=== PATIENT | male | born 1955 | race Caucasian/White ===

== ENCOUNTER 2018-02-04 09:29 | Emergency (ER) | payer OTHER ==
[2018-02-04 09:44] VITALS: BP 157/98
--- NOTE | 2018-02-04 10:05 | UC ---
Dizzy HPI HPI Summary: The patient is a 62-year-old male that had the acute onset of vertigo 5 days ago. Vertigo is worsened with any change in head position or body position. He had severe nausea on the day of onset with a few episodes of vomiting. He has had no URI symptoms. He denies any headache. He denies any URI symptoms. Denies any ringing or roaring in his ears. He still has vertigo however the past few days he has not had any nausea or vomiting associated with it. He states that he had similar but more severe symptoms about 20 years ago. He states his balance has never been the same since then. He denies any chest pain or shortness of breath. He does have a history of diabetes. - History Of Current Complaint Chief Complaint: UCDizziness Stated Complaint: DIZZY Hx Obtained From: Patient Onset/Duration: Sudden Onset, Lasting Days Timing: Constant Severity Initially: Severe Severity Currently: Moderate Pain Intensity: 0 Pain Scale Used: 0-10 Numeric Character: Room Spinning Aggravating Factor(s): Position Change, Change In Head Position Alleviating Factor(s): Rest Associated Signs And Symptoms: Positive: Nausea, Vomiting, Unsteady Gait - using a cane nw - Allergies/Home Medications Allergies/Adverse Reactions: Allergies Allergy/AdvReac Type Severity Reaction Status Date / Time No Known Allergies Allergy Verified 02/04/18 09:44 Home Medications: Home Medications Empaglifozin (NF) [Jardiance] 1 tab PO DAILY 02/04/18 [History Confirmed ] PMH/Surg Hx/FS Hx/Imm Hx Previously Healthy: Yes Endocrine History: Diabetes - Surgical History Surgical History: Yes Surgery Procedure, Year, and Place: hernia repair 1985 - Family History Known Family History: Positive: Hypertension, Diabetes Family History: NON CONTRIBUTORY - Social History Alcohol Use: Rare Alcohol Amount: FEW DRINKS/YEAR Substance Use Type: None Smoking Status (MU): Never Smoked Tobacco Have You Smoked in the Last Year: No - Immunization History Most Recent Tetanus Shot: unk Review of Systems All Other Systems Reviewed And Are Negative: Yes Constitutional: Positive: Other - vertigo Skin: Positive: Negative Eyes: Positive: Negative ENT: Positive: Negative Respiratory: Positive: Negative Cardiovascular: Positive: Negative Gastrointestinal: Positive: Negative Genitourinary: Positive: Negative Motor: Positive: Negative Neurovascular: Positive: Negative Musculoskeletal: Positive: Negative Neurological: Positive: Negative Psychological: Positive: Negative Physical Exam Triage Information Reviewed: Yes Appearance: Well-Appearing, No Pain Distress, Well-Nourished Vital Signs: Initial Vital Signs Temp 97.3 F 02/04/18 09:39 Pulse 78 02/04/18 09:39 Resp 18 02/04/18 09:39 BP 157/98 02/04/18 09:39 Pulse Ox 98 02/04/18 09:39 Vital Signs Reviewed: Yes Eyes: Positive: Conjunctiva Clear, Other: - EOMI/PERRRL/fundi -benign, no nystagmus ENT: Positive: Hearing grossly normal, Pharyngeal erythema, TMs normal, Uvula midline. Negative: Nasal congestion, Nasal drainage, Tonsillar swelling, Tonsillar exudate, Trismus, Muffled voice, Hoarse voice, Dental tenderness, Sinus tenderness Neck: Positive: Supple, Nontender, No Lymphadenopathy, Other: - no bruits Respiratory Exam: Other Respiratory: Positive: Lungs clear, Normal breath sounds, No respiratory distress Cardiovascular: Positive: RRR, No Murmur Musculoskeletal: Positive: ROM Intact, No Edema Neurological: Positive: Alert Psychological Exam: Normal Skin Exam: Normal Diagnostics - Radiology No standard instances Radiology Interpretation Completed By: Radiologist Summary of Radiographic Findings: no mass/no cva/no sinusitis - EKG Cardiac Rhythm: Sinus: Normal Ectopy: None ST Segment: Normal Dizzy Course/Dx - Course Course Of Treatment: pt not driving and will not drive until better - Differential Dx/Diagnosis Provider Diagnosis: Vertigo Discharge - Sign-Out/Discharge Documenting (check all that apply): Patient Departure All imaging exams completed and their final reports reviewed: Yes - Discharge Plan Condition: Stable Disposition: HOME Patient Education Materials: Vertigo (ED) Forms: *Work Release Referrals: Hang Smith MD [Primary Care Provider] - 3 Days Additional Instructions: no driving until better use cane until better change position slowly - Billing Disposition and Condition Condition: STABLE Disposition: Home
[2018-02-04] MEDS ORDERED: Meclizine TAB* 12.5 MG PO ONE (10:07)
== END 2018-02-04 11:03 | disposition home or self-care (01) ==
LOC: UCEAST 09:29
DX: R42 Dizziness and giddiness (principal); E11.9 Type 2 diabetes mellitus without complications
CPT/HCPCS: 70450; 93005; 99212; A9270-GY; G0463

== ENCOUNTER 2018-06-26 06:21 | Day surgery (SDC) | payer OTHER ==
[~2018-06-26 06:21] MED LIST: Acetaminophen TAB* 325 MG PO PRN; Buffered Lidocaine 1% SYRIN* 1 ML/SYRINGE INTRADERM ONE; Midazolam* 1 MG/ML 2 ML VIAL (2 MG) ONE
[2018-06-26] MEDS ORDERED: Midazolam* 1 MG/ML 2 ML VIAL (2 MG) ONE (07:34)
[2018-06-26 08:03] VITALS: BP 124/62
--- NOTE | 2018-06-26 08:41 | OP ---
OPERATIVE NOTE: DATE OF OPERATION: 06/26/18 DATE OF : 57 SURGEON: Albert Castellanos MD PREOPERATIVE DIAGNOSIS: Cataract left eye. POSTOPERATIVE DIAGNOSIS: Cataract left eye. OPERATIVE PROCEDURE: Extracapsular cataract extraction with intraocular lens implant left eye. PROCEDURE: The patient was brought to the operating room after being given 1/2% Alcaine with epineph rine drops in the preoperative area. The eye was prepped and draped in the usual sterile fashion. S terile drape and eyelid speculum were placed. Again, topical 1/2% Alcaine with epinephrine was given . A paracentesis incision was made at the 3 o'clock position with the No.75 blade. Clear cornea inc ision 2.2 x 2.2-mm was created at the 6 o'clock position starting at the anterior limbus using the 2. 2-mm keratome. The anterior chamber was irrigated with 0.4 mL of 1% non-preservative intracameral li docaine and filled with DisCoVisc. A capsulorrhexis was completed using the cystotome and the Utrata forceps. Hydrodissection was performed with balanced salt solution. The lens nucleus was removed wi th the Phacoemulsification handpiece without incident. Cortex was removed with the irrigation-aspira tion handpiece. The capsular bag was re-inflated using DisCoVisc and an SN60WF 19.5 implant was inse rted with the shooter. The irrigation-aspiration handpiece was used to remove all residual DisCoVisc . The eye was refilled with balanced salt solution and the wound checked and found to be watertight. Topical Maxitrol drops were given. [id number]/[facility] #: [id number]
[2018-06-26] MEDS ORDERED: acetaZOLAMIDE TAB* 250 MG ONE (13:55)
[2018-06-26] MEDS ORDERED: Lidocaine 2% EPI 1:200000 MPF*10-20 ML VIAL ONE (13:55)
[2018-06-26] MEDS ORDERED: Ketorolac 0.5% OPHTH (NF) 0.5 % 5 ML BTL ONE (13:55)
[2018-06-26] MEDS ORDERED: Povidone Iodine 5% OPTH* 30 ML BTL ONE (13:55)
[2018-06-26] MEDS ORDERED: Cyclopentolate 1% OPTH.SOL* 2 ML BTL ONE (13:55)
[2018-06-26] MEDS ORDERED: Phenylephrine OPHTH SOL 2.5%* 2 ML ONE (13:55)
[2018-06-26] MEDS ORDERED: Lidocaine 1%* 5 ML VIAL ONE (13:55)
[2018-06-26] MEDS ORDERED: Proparacaine 0.5% OPHTH.SOL* 15 ML BTL ONE (13:55)
[2018-06-26] MEDS ORDERED: Neomycin/Polymy/Dex OPTH.SUSP* MAXITROL 0.1% 5 ML ONE (13:55)
== END 2018-06-26 08:13 | disposition home or self-care (01) ==
LOC: OREAST 06:21
PROVIDERS: ATTEND Specialist
DX: H25.812 Combined forms of age-related cataract, left eye (principal); Z01.810 Encounter for preprocedural cardiovascular examination; E11.3293 Type 2 diabetes mellitus with mild nonproliferative diabetic retinopathy without macular edema, bilateral; H50.53 Vertical heterophoria; I10 Essential (primary) hypertension; E11.9 Type 2 diabetes mellitus without complications; E78.00 Pure hypercholesterolemia, unspecified; J06.9 Acute upper respiratory infection, unspecified; R30.0 Dysuria; Z96.1 Presence of intraocular lens
CPT/HCPCS: A9270-GY; J2250; V2632

== ENCOUNTER 2018-07-19 15:24 | Emergency (ER) | payer OTHER ==
--- OUTSIDE RECORDS SUMMARY | 2018-07-19 15:29 | XMS REPORT | Continuity of Care Document ---
:1955 External Reference #:[id number] Author Name Sanjuanita Mckeon O.D. Address [address] [place] [address] Care Team Providers Name Role Phone Hang Smith M.D. Primary Care Physician Unavailable Payers Date Identification Numbers Payment Provider Subscriber Policy Number: [id number] [employer] Ppo/Pos/Epo/Nap [employer] Number: [id number] [address] PayID: [id number] [place] [address] Advance Directives Description No Information Available Problems Active Problems Provider Date Essential hypertension Onset: Type 2 diabetes mellitus Albert Castellanos M.D. Onset: 10/19/2014 Nuclear senile cataract Albert Castellanos M.D. Onset: 10/19/2014 Disorder of eye with type 2 diabetes mellitus Albert Castellanos M.D. Onset: Nonproliferative diabetic retinopathy Albert Castellanos M.D. Onset: 10/19/2014 Combined form of senile cataract Albert Castellanos M.D. Onset: 01/14/2015 Type 2 diabetes mellitus with mild Albert Castellanos M.D. Onset: 01/14/2015 nonproliferative diabetic retinopathy without macular edema Presence of intraocular lens Albert Castellanos M.D. Onset: 01/21/2015 Tear film insufficiency Sanjuanita Mckeon O.D. Onset: 03/31/2015 Type 2 diabetes mellitus with mild Albert Castellanos M.D. Onset: 09/04/2016 nonproliferative diabetic retinopathy without macular edema, bilateral Vertical heterophoria Sanjuanita Mckeon O.D. Onset: 02/12/2018 Retinal lattice degeneration Sanjuanita Mckeon O.D. 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 Solution Fish Oil 1 by mouth Albert Castellanos, 10/18/2014 1000mg Capsules every day M.D. Phenylephrine Unknown Decongestant Naproxen Unknown 220mg Tablets Ferrous Sulfate Unknown 325(65Fe) mg Tablets Potassium Unknown 75mg Tablets Jardiance Unknown 25mg Tablets Januvia Unknown 100mg Tablets Multivitamins Unknown Capsules Chromium Unknown 1000mcg Tablets Magnesium Unknown 500mg Capsules Metformin HCL Sammi Smithter 850mg Tablets M.D. Losartan Potassium Sarah Hang 50mg M.D. Tablets Glyburide Sarah Hang 5mg Tablets M.D. Atorvastatin Calcium Sarah Hang 20mg M.D. Tablets History Medications Ciprofloxacin HCL instill one drop 10ml Albert Castellanos, 06/11/2018 - 0.3% in the left eye M.D. 07/11/2018 Solution three times a day, start the day before surgery Ketorolac Tromethamine use one drop in 10ml Albert Castellanos, 06/11/2018 - 0.5% the left eye three M.D. 07/11/2018 Solution times a day, start the day before surgery Prednisolone Acetate 1 drops left eye 10ml Albert Barrerachristiano, 06/11/2018 - 1% three times a day. M.D. 07/11/2018 Suspension taper as directed Artificial Tears as needed Sanjuanita Mckeon, 02/03/2015 - 0.1-0.3% O.D. 03/30/2015 Solution Ciprofloxacin HCL instill one drop 5ml Albert Barrerachristiano, 01/15/2015 - 0.3% in the right eye M.D. 02/03/2015 Solution three times a day, start the day before surgery Ketorolac Tromethamine 1 drop right eye 10ml Albert Barrerachristiano, 01/15/2015 - 0.5% daily M.D. 03/30/2015 Solution Prednisolone Acetate 1 drop right eye 15ml Albert Barrerachristiano, 01/15/2015 - 1% daily M.D. 03/30/2015 Suspension Hang Mcconnell - 5mg Tablets M.D. 08/26/2015 Immunizations Description No Information Available Vital Signs Description No Information Available Results Test Date Facility Test Result H/L Range Note Laboratory test 06/26/2018 [facility] Point of Care 195 mg/dL High 70-[address] [place] [address] (607)- - Laboratory test 01/20/2015 [facility] Point of Care 222 mg/dL High 74-106 [address] [place] [address] (607)- - 1 Tobacco Buyer: [id number] Tobacco Buyer: [id number] TRAY ZIMMERMAN Procedures Date Code Description Status 06/26/2018 57013 Extracapsular Cataract Extraction W/Intraocular Lens Completed 06/11/2018 73689 Ophthalmic Biometry Completed 06/11/2018 52936 Scanning Computerized Opthalmic Diagnostic Posterior Seg Completed Retina 06/11/2018 87236 Est Patient Intermediate Exam Completed 03/12/2018 15815 Est Patient Comprehensive Exam Completed 02/12/2018 21578 Est Patient Intermediate Exam Completed 09/04/2017 13193 Scanning Computerized Opthalmic Diagnostic Posterior Seg Completed Retina 09/04/2017 43120 Determination Of Refractive State Completed 09/04/2017 20194 Est Patient Comprehensive Exam Completed 09/04/2016 36229 Scanning Computerized Opthalmic Diagnostic Posterior Seg Completed Retina 09/04/2016 61362 Est Patient Comprehensive Exam Completed 08/27/2015 97867 Est Patient Comprehensive Exam Completed 01/20/2015 50479 Extracapsular Cataract Extraction W/Intraocular Lens Completed 01/14/2015 75603 Computerized Corneal Topography Completed 01/14/2015 49244 Scanning Computerized Opthalmic Diagnostic Posterior Seg Completed Retina 01/14/2015 76304 Ophthalmic Biometry Completed 10/19/2014 21374 Est Patient Intermediate Exam Completed 03/27/2014 54334 Scanning Computerized Opthalmic Diagnostic Posterior Seg Completed Retina 03/27/2014 57158 Est Patient Comprehensive Exam Completed 03/25/2013 60898 Determination Of Refractive State Completed 03/25/2013 17553 Est Patient Comprehensive Exam Completed 11/02/2011 37058 Determination Of Refractive State Completed 11/02/2011 40864 Est Patient Comprehensive Exam Completed 12/15/2010 16227 Est Patient Comprehensive Exam Completed 12/09/2009 75131 Est Patient Comprehensive Exam Completed 12/08/2008 54742 Determination Of Refractive State Completed 12/08/2008 50917 New Patient Comprehensive Exam Completed 03/22/2005 07441 Visual Field Exam Extended Completed 01/24/2005 40746 Determination Of Refractive State Completed 01/24/2005 47314 Est Patient Comprehensive Exam Completed Encounters Type Date Location Provider Dx Diagnosis Office Visit 03/31/2015 Sanjuanita Skinner, H04.123 Dry eye syndrome 2:15p alin JAMES O.D. of bilateral lacrimal glands Office Visit 01/14/2015 Albert Skinner, H25.811 Combined forms of 8:15a alin JAMES M.D. age-related cataract, right eye H25.12 Age-related nuclear cataract, left eye E11.329 Type 2 diab w mild nonprlf diabetic rtnop w/o macular edema Office Visit 03/24/2009 8:15a Albert Granados, 379.24 Other Vitreous MD Emanuel, alin Sharma Opacities / Floater Office Visit 05/04/2005 8:15a Albert Granados, 250.00 Diabetes/ Type 2 MD Emanuel, alin Sharma W/O Complication Plan of Treatment Future Appointment(s):12/27/2018 8:00 am - Albert Castellanos M.D. at [facility], pc07/12/2018 - Sanjuanita Mckeon O.D.Z96.1 Presence of intraocular lensComments:The artificial lens implant in your left eye appears to be stable at this time.H35.413 Lattice degeneration of retina, bilateralComments:if you notice any new flashes or floaters, please call the office to be seenFollow up: as scheduled
--- OUTSIDE RECORDS SUMMARY | 2018-07-19 15:30 | XMS REPORT | Continuity of Care Document ---
:1955 External Reference #:[id number] Author Name Albert Castellanos M.D. Address [address] [place] [address] Care Team Providers Name Role Phone Hang Smith M.D. Primary Care Physician Unavailable Payers Date Identification Numbers Payment Provider Subscriber Policy Number: [id number] [employer] Ppo/Pos/Epo/Nap [employer] Number: [id number] [address] PayID: [id number] [place] [address] Advance Directives Description No Information Available Problems [...] Vertical heterophoria Sanjuanita Mckeon O.D. 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 Solution Ciprofloxacin HCL instill one drop 10ml Albert Castellanos, 06/11/2018 0.3% in the left eye M.D. Solution three times a day, start the day before surgery Ketorolac Tromethamine use one drop in 10ml Albert Castellanos, 06/11/2018 0.5% the left eye M.D. Solution three times a day, start the day before surgery Prednisolone Acetate 1 drops left eye 10ml Albert Castellanos, 06/11/2018 1% three times a M.D. Suspension day. taper as directed Fish Oil 1 by mouth every Albert Castellanos, 10/18/2014 1000mg Capsules day M.D. Phenylephrine Unknown Decongestant Naproxen Unknown 220mg Tablets Ferrous Sulfate Unknown 325(65Fe) mg Tablets Potassium Unknown 75mg Tablets Jardiance Unknown 25mg Tablets Januvia Unknown 100mg Tablets Multivitamins Unknown Capsules Chromium Unknown 1000mcg Tablets Magnesium Unknown 500mg Capsules Metformin HCL Hang Smith 850mg Tablets M.D. Losartan Potassium Hang Smith 50mg M.D. Tablets Glyburide Hang Smith 5mg Tablets M.D. Atorvastatin Calcium Sammi Smith 20mg M.D. Tablets History Medications Artificial Tears as needed Sanjuanita Mckeon, 02/03/2015 - 0.1-0.3% O.D. 03/30/2015 Solution Ciprofloxacin HCL instill one drop 5ml Albert Barrerachristiano, 01/15/2015 - 0.3% in the right eye M.D. 02/03/2015 Solution three times a day, start the day before surgery Ketorolac Tromethamine 1 drop right eye 10ml Albert Webbeduardo, 01/15/2015 - 0.5% daily M.D. 03/30/2015 Solution Prednisolone Acetate 1 drop right eye 15ml Albert Barrerachristiano, 01/15/2015 - 1% daily M.D. 03/30/2015 Suspension Hang Mcconnell - 5mg Tablets M.D. 08/26/2015 Immunizations Description No Information Available Vital Signs Description No Information Available Results Test Date Facility Test Result H/L Range Note Laboratory test 06/26/2018 [facility] Point of Care 195 mg/dL High 70-100 [address] [place] [address] (607)- - Laboratory test 01/20/2015 [facility] Point of Care 222 mg/dL High 74-106 [address] [place] [address] (607)- - 1 Patrol Guard: [id number] Patrol Guard: [id number] TRAY ZIMMERMAN Procedures Date Code Description Status 06/26/2018 67409 Extracapsular Cataract Extraction W/Intraocular Lens Completed 06/11/2018 59926 Ophthalmic Biometry Completed 06/11/2018 32279 Scanning Computerized Opthalmic Diagnostic Posterior Seg Completed Retina 06/11/2018 60002 Est Patient Intermediate Exam Completed 03/12/2018 54451 Est Patient Comprehensive Exam Completed 02/12/2018 13064 Est Patient Intermediate Exam Completed 09/04/2017 35173 Scanning Computerized Opthalmic Diagnostic Posterior Seg Completed Retina 09/04/2017 78476 Determination Of Refractive State Completed 09/04/2017 38609 Est Patient Comprehensive Exam Completed 09/04/2016 84727 Scanning Computerized Opthalmic Diagnostic Posterior Seg Completed Retina 09/04/2016 98348 Est Patient Comprehensive Exam Completed 08/27/2015 43016 Est Patient Comprehensive Exam Completed 01/20/2015 76921 Extracapsular Cataract Extraction W/Intraocular Lens Completed 01/14/2015 12032 Computerized Corneal Topography Completed 01/14/2015 93913 Scanning Computerized Opthalmic Diagnostic Posterior Seg Completed Retina 01/14/2015 74481 Ophthalmic Biometry Completed 10/19/2014 75651 Est Patient Intermediate Exam Completed 03/27/2014 13004 Scanning Computerized Opthalmic Diagnostic Posterior Seg Completed Retina 03/27/2014 47972 Est Patient Comprehensive Exam Completed 03/25/2013 86098 Determination Of Refractive State Completed 03/25/2013 79614 Est Patient Comprehensive Exam Completed 11/02/2011 65065 Determination Of Refractive State Completed 11/02/2011 92083 Est Patient Comprehensive Exam Completed 12/15/2010 37487 Est Patient Comprehensive Exam Completed 12/09/2009 70025 Est Patient Comprehensive Exam Completed 12/08/2008 70764 Determination Of Refractive State Completed 12/08/2008 81550 New Patient Comprehensive Exam Completed 03/22/2005 81396 Visual Field Exam Extended Completed 01/24/2005 27962 Determination Of Refractive State Completed 01/24/2005 44870 Est Patient Comprehensive Exam Completed Encounters Type [...] Albert Granados, 250.00 Diabetes/ Type 2 MD [facility] M.D. W/O Complication Plan of Treatment Future Appointment(s):07/12/2018 7:45 am - Sanjuanita Mckeon O.D. at Albert Castellanos MD, 06/27/2018 - Albert Castellanos M.D.Z96.1 Presence of intraocular lensComments:Smoking can increase the risk of developing or worsening any eye related disease, as well as affect your overall health. If you are a smoker, we strongly recommend that you quit.If you are not a smoker, we strongly recommend that you do not start. The artifical lens implant in your left eye appears to be stable. Since this is the first day after surgery, your left eye is still dilated and the vision will still be slightly blurry. The dilation will go down over the next day or two. Continue taking your eye drops as directed on the surgical calendar. If you have any questions, please call our office.E11.6569 Type 2 diabetes mellitus with mild nonproliferative diabetic retinopathy without macular edema, bilateralFollow up:6 Month Follow Up OCT MAC You can expect to have your eyes dilated at your next visit. If Dr. Rosenthalders any additional testing, it may require extra time. We recommend that you bring sunglasses, asdilation drops often make you light sensitive until they wear off. We always recommend you bring someone to drive you home if you are uncomfortable driving with your eyes dilated. If you have any questions before your next visit, feel free to call our office at .
--- NOTE | 2018-07-19 15:33 | UC ---
Dental HPI - HPI Summary HPI Summary: 63 yo male presents with dental pain. He tells me that he has extensive dental work on the upper right part of his mouth/teeth. This morning he noticed some pain and swelling to the gums in this area. He took a needle and poked the swollen gum line and drained a lot of blood and yellow pus. He called his dentist, but they cannot see him for 3 days and recommended he be seen at to be placed on anbx. Pt is tolerating po well. Denies fevers. - History of Current Complaint Stated Complaint: DENTAL Time Seen by Provider: 07/19/18 15:32 Hx Obtained From: Patient Onset/Duration: Sudden Onset Severity: Mild Pain Intensity: 3 Pain Scale Used: 0-10 Numeric - Allergies/Home Medications Allergies/Adverse Reactions: Allergies Allergy/AdvReac Type Severity Reaction Status Date / Time No Known Allergies Allergy Verified 06/26/18 06:37 PMH/Surg Hx/FS Hx/Imm Hx - Additional Past Medical History Additional PMH: Vertigo Endocrine History: Diabetes, Dyslipidemia Cardiovascular History: Hypertension - Surgical History Surgical History: Yes Surgery Procedure, Year, and Place: hernia repair 1985 - Family History Known Family History: Positive: Hypertension, Diabetes - Social History Lives: With Family Alcohol Use: Rare Alcohol Amount: FEW DRINKS/YEAR Substance Use Type: None Smoking Status (MU): Never Smoked Tobacco Have You Smoked in the Last Year: No - Immunization History Most Recent Tetanus Shot: unk Review of Systems All Other Systems Reviewed And Are Negative: Yes Constitutional: Positive: Negative Skin: Positive: Negative Eyes: Positive: Negative ENT: Positive: Dental Pain Respiratory: Positive: Negative Cardiovascular: Positive: Negative Gastrointestinal: Positive: Negative Neurovascular: Positive: Negative Neurological: Positive: Negative Psychological: Positive: Negative Physical Exam - Summary Physical Exam Summary: GENERAL: NAD. WDWN. No pain distress. SKIN: No rashes, sores, lesions, or open wounds. HEENT: Head: AT/NC Nose: Nasal mucosa pink and moist. NTTP maxillary and frontal sinus. Throat: Posterior oropharynx without exudates, erythema, or tonsillar enlargement. Uvula midline. NECK: Supple. Nontender. No lymphadenopathy. CHEST: No accessory muscle use. Breathing comfortably and in no distress. CV: Pulses intact. Cap refill <2seconds NEURO: Alert. PSYCH: Age appropriate behavior. Triage Information Reviewed: Yes Vital Signs: Vital Signs: Temp Pulse Resp BP Pulse Ox 97.5 F 69 16 145/88 95 07/19/18 15:36 07/19/18 15:36 07/19/18 15:36 07/19/18 15:36 07/19/18 15:36 Vital Signs Reviewed: Yes Dental: Positive: Percussion Tenderness @ - Tooth #5, Abscess @ - Tooth #5, Cellulitis @ - Tooth #5. Negative: Cervical Lymphadenopathy, Bleeding Dental Complaint Course/Dx - Course Course Of Treatment: Tooth #5 abscess - Differential Dx/Diagnosis Provider Diagnosis: Dental abscess Discharge - Sign-Out/Discharge Documenting (check all that apply): Patient Departure All imaging exams completed and their final reports reviewed: No Studies - Discharge Plan Condition: Stable Disposition: HOME Prescriptions: Amoxicillin PO (*) [Amoxicillin 875 MG (*)] 875 mg PO BID #14 tab Patient Education Materials: Dental Abscess (ED) Referrals: Hang Smith MD [Primary Care Provider] - Additional Instructions: If you develop a fever, shortness of breath, chest pain, new or worsening symptoms - please call your PCP or go to the ED immediately. Please keep your appointment with your dentist for sunday for a recheck - Billing Disposition and Condition Condition: STABLE Disposition: Home
[2018-07-19 15:42] VITALS: BP 145/88
== END 2018-07-19 15:49 | disposition home or self-care (01) ==
LOC: UCEAST 15:24
DX: K04.7 Periapical abscess without sinus (principal); E11.9 Type 2 diabetes mellitus without complications
CPT/HCPCS: 99212; G0463

== ENCOUNTER 2019-03-25 20:22 | Emergency (ER) | payer OTHER ==
--- NOTE | 2019-03-25 20:49 | ED ---
Substance Abuse/Use - HPI Summary HPI Summary: Pt is a 63 y/o M presenting to the ED with a chief complaint of an accidental overdose. He states he had oral surgery today and was prescribed 500mg Amoxicillin TID, and when he went to take his night time medications, he accidentally instead took all of his Amoxicillin, totaling 6,500mg. Hes feeling some palpitations, but denies other sx, including abd pain or shortness of breath. - History Of Current Complaint Chief Complaint: EDOverdose Stated Complaint: OVERDOSE ON AMOXICILLIAN PER PT Time Seen by Provider: 03/25/19 20:36 Hx Obtained From: Patient Onset/Duration of Drug/ETOH Abuse: Hours Ingestion History: Type/Name Of Drug - amoxicillin, Amount Ingested - 6500mg, Approximate Time Of Ingestion - FLITCH HANGER Overdose Characteristics: Oral Severity Initially: Mild Severity Currently: Mild Aggravating Factor(s): Nothing Alleviating Factor(s): Nothing Associated Signs And Symptoms: Palpitations, Unintentional OTC - Allergies/Home Medications Allergies/Adverse Reactions: Allergies Allergy/AdvReac Type Severity Reaction Status Date / Time No Known Allergies Allergy Verified 03/25/19 20:56 PMH/Surg Hx/FS Hx/Imm Hx Previously Healthy: Yes Endocrine/Hematology History: Reports: Hx Diabetes - type 2 Denies: Hx Thyroid Disease Cardiovascular History: Reports: Hx Hypertension - on meds Denies: Hx Pacemaker/ICD Respiratory History: Denies: Hx Asthma, Hx Chronic Obstructive Pulmonary Disease (COPD) GI History: Reports: Hx Hiatal Hernia - Hx OF, SURGERY 1985, Hx Irritable Bowel - Hx OF OCCASSIONAL Sx, NONE IN PAST FEW YEARS, Other GI Disorders - DIVERTICULITIS, FEW EPISODES OVER PAST 30 YRS Denies: Hx Ulcer History: Denies: Hx Renal Disease Sensory History: Reports: Hx Cataracts - RIGHT EYE, Hx Contacts or Glasses - GLASSES Denies: Hx Hearing Aid Opthamlomology History: Reports: Hx Cataracts - RIGHT EYE, Hx Contacts or Glasses - GLASSES Neurological History: Reports: Hx Nerve Disease - neuropathy left foot Psychiatric History: Reports: Hx Depression - Hx OF Denies: Hx Panic Disorder - Surgical History Surgery Procedure, Year, and Place: hernia repair 1985. BILATERAL CATARACTS Hx Anesthesia Reactions: No Infectious Disease History: No Infectious Disease History: Denies: Hx Hepatitis, Hx Human Immunodeficiency Virus (HIV), History Other Infectious Disease, Traveled Outside the [place] in Last 30 Days - Family History Known Family History: Positive: Hypertension, Diabetes - Social History Alcohol Use: Rare Alcohol Amount: FEW DRINKS/YEAR Hx Substance Use: No Substance Use Type: Reports: None Hx Tobacco Use: No Smoking Status (MU): Never Smoked Tobacco Have You Smoked in the Last Year: No Review of Systems Positive: Other - accidental OD Positive: Palpitations Negative: Shortness Of Breath Negative: Abdominal Pain All Other Systems Reviewed And Are Negative: Yes Physical Exam - Summary Physical Exam Summary: Appearance: Well-appearing, Well-nourished, lying in bed comfortable Skin: Warm, dry, no obvious rash Eyes: sclera anicteric, no conjunctival pallor ENT: mucous membranes moist Neck: deferred Respiratory: No signs of respiratory distress Cardiovascular: Appears well perfused, pulses are nml Abdomen: deferred Musculoskeletal: Moving all 4 extremities without obvious discomfort Neurological: Awake and alert, mentation is normal, speech is fluent and appropriate Psychiatric: affect is normal, does not appear anxious or depressed Triage Information Reviewed: Yes Vital Signs On Initial Exam: Initial Vitals Temp Pulse Resp BP Pulse Ox 97.7 F 102 20 184/114 97 03/25/19 20:26 03/25/19 20:26 03/25/19 20:26 03/25/19 20:26 03/25/19 20:26 Vital Signs Reviewed: Yes Procedures - Sedation Patient Received Moderate/Deep Sedation with Procedure: No Diagnostics - Vital Signs Vital Signs Temp Pulse Resp BP Pulse Ox 03/25/19 20:26 97.7 F 102 20 184/114 97 - Laboratory Lab Statement: Any lab studies that have been ordered have been reviewed, and results considered in the medical decision making process. Course/Dx - Course Course Of Treatment: Pt is a 63 y/o M presenting to the ED with a chief complaint of an accidental overdose. He states he had oral surgery today and was prescribed 500mg Amoxicillin TID, and when he went to take his night time medications, he accidentally instead took all of his Amoxicillin, totaling 6, 500mg. Hes feeling some palpitations, but denies other sx, including abd pain or shortness of breath. Pt's physical exam is nml. I spoke with poison control at 2044 who stated the pt should be fine. Pt will be d/c'ed with dx of accidental overdose. He is stable and agreeable with this plan. - Diagnoses Provider Diagnoses: Accidental overdose Discharge ED - Sign-Out/Discharge Documenting (check all that apply): Patient Departure - Discharge Plan Condition: Stable Disposition: HOME Prescriptions: Amoxicillin PO (*) [Amoxicillin 500 MG CAP*] 500 mg PO TID #12 cap Patient Education Materials: Adult Overdose (ED) Referrals: Hang Smith MD [Primary Care Provider] - Additional Instructions: Fortunately this inadvertent overdose will not cause any significant harm to you. I checked with [facility] to confirm this. These types of antibiotics are quite well tolerated, even at quite high levels of overdose, well beyond what you took. Of course, I would not take any more antibiotic for the next 2 days, but then you can resume the prescription on . - Billing Disposition and Condition Condition: STABLE Disposition: Home - Attestation Statements Document Initiated by Mile: Yes Documenting Scribe: Fiorella Lima Provider For Whom Mile is Documenting (Include Credential): Kam Carvajal MD. Scribe Attestation: Fiorella Steven, millered for Kam Carvajal MD. on 03/26/19 at 0542. Scribe Documentation Reviewed: Yes Provider Attestation: The documentation as recorded by the Fiorella nunn accurately reflects the service I personally performed and the decisions made by , Kam Carvajal MD. Status of Scribe Document: Viewed
[2019-03-25 21:17] VITALS: BP 174/97
== END 2019-03-25 21:10 | disposition home or self-care (01) ==
LOC: ED 20:22
DX: T36.0X1A Poisoning by penicillins, accidental (unintentional), initial encounter (principal); R00.2 Palpitations; Y92.9 Unspecified place or not applicable; E11.9 Type 2 diabetes mellitus without complications; Z79.84 Long term (current) use of oral hypoglycemic drugs; I10 Essential (primary) hypertension
CPT/HCPCS: 99283